=== PATIENT | male | born 1990 | race Caucasian/White ===

== ENCOUNTER 2019-04-15 09:11 | Emergency (ER) | payer BC, OTHER ==
[~2019-04-15] VITALS: Ht 182.9 cm; Wt 64.0 kg
[2019-04-15] MEDS ORDERED: MORPHINE SULFATE 4 MG/ML CPJ (NOT FOR IM USE) IV STA (09:46)
[2019-04-15] MEDS ORDERED: OXYCODONE HCL/ACETAMINOPHEN 5/325MG TABLET PO ONE (12:15)
[2019-04-15 12:39] VITALS: BP 118/52
== END 2019-04-15 12:46 | disposition home or self-care (01) ==
LOC: ER 09:11
DX: S02.19XA Other fracture of base of skull, initial encounter for closed fracture (principal); S00.81XA Abrasion of other part of head, initial encounter; V43.52XA Car driver injured in collision with other type car in traffic accident, initial encounter; Y93.89 Activity, other specified; Y92.488 Other paved roadways as the place of occurrence of the external cause
CPT/HCPCS: 70450; 70486; 72125; 96374; 99284; J2270